=== PATIENT | male | born 1945 | race Caucasian/White ===

== ENCOUNTER 2016-10-06 12:25 | Emergency (ER) | payer MEDICARE, BC ==
[~2016-10-06] VITALS: Ht 180.3 cm; Wt 136.0 kg
[2016-10-06 12:30] VITALS: BP 136/44
--- NOTE | 2016-10-06 13:31 | NUR ---
TRIAGE NURSE REPORT NOW RECEIVED FROM Kyung EVANS RN. THIS NURSE NOW ASSUMES CARE OF PATIENT.
== END 2016-10-06 14:45 | disposition home or self-care (01) ==
LOC: ED 12:31
DX: S20.221A Contusion of right back wall of thorax, initial encounter (principal); W01.0XXA Fall on same level from slipping, tripping and stumbling without subsequent striking against object, initial encounter; Y92.89 Other specified places as the place of occurrence of the external cause
CPT/HCPCS: 72072; 99282